=== PATIENT | female | born 1970 | race Caucasian/White ===

== ENCOUNTER → 2023-05-14 16:51 | Outpatient (REF) | payer OTHER, SELFPAY | LOC: WDC 16:51 | PROVIDERS: ATTENDING PHYSICIAN Nurse Practitioner Women's Health; FAMILY PHYSICIAN Family Medicine | DX: Z12.31 Encounter for screening mammogram for malignant neoplasm of breast (principal) | CPT/HCPCS: 77063; 77067 ==

== ENCOUNTER → 2024-01-09 06:56 | Outpatient (REF) | payer OTHER, SELFPAY | LOC: MRI 06:56 | PROVIDERS: ATTENDING PHYSICIAN Physician Assistant Surgical; FAMILY PHYSICIAN Family Medicine | DX: M25.562 Pain in left knee (principal) | CPT/HCPCS: 73721 ==

== ENCOUNTER → 2024-02-15 08:36 | Outpatient (REF) | payer OTHER, SELFPAY | LOC: RAD 08:36 | PROVIDERS: ATTENDING PHYSICIAN Physician Assistant Medical; FAMILY PHYSICIAN Family Medicine | DX: R10.10 Upper abdominal pain, unspecified (principal); R25.2 Cramp and spasm | CPT/HCPCS: 76700 ==

== ENCOUNTER → 2024-04-25 14:55 | Outpatient (REF) | payer OTHER, SELFPAY | LOC: RAD 14:55 | PROVIDERS: ATTENDING PHYSICIAN Physician Assistant Medical; FAMILY PHYSICIAN Physician Assistant Medical | DX: M79.661 Pain in right lower leg (principal); M79.662 Pain in left lower leg; R10.9 Unspecified abdominal pain | CPT/HCPCS: 74177; 93922; 93925; Q9967 ==

== ENCOUNTER → 2024-06-14 18:05 | Outpatient (REF) | payer OTHER, SELFPAY | LOC: WDC 18:05 | PROVIDERS: ATTENDING PHYSICIAN Nurse Practitioner Women's Health; FAMILY PHYSICIAN Physician Assistant Medical | DX: Z12.31 Encounter for screening mammogram for malignant neoplasm of breast (principal) | CPT/HCPCS: 77063; 77067 ==

== ENCOUNTER → 2024-07-15 07:00 | Outpatient (REF) | payer OTHER, SELFPAY | LOC: MRI 07:00 | PROVIDERS: ATTENDING PHYSICIAN Specialist; FAMILY PHYSICIAN Physician Assistant Medical | DX: M25.562 Pain in left knee (principal) | CPT/HCPCS: 73721 ==

== ENCOUNTER → 2024-09-27 09:46 | Outpatient (REF) | payer OTHER, SELFPAY | LOC: PET 09:46 | PROVIDERS: ATTENDING PHYSICIAN Student in an Organized Health Care Education/Training Program | DX: Z01.818 Encounter for other preprocedural examination (principal) | CPT/HCPCS: 78431; A9555; J2785 ==

== ENCOUNTER 2024-11-03 10:54 | Outpatient (RCR) | payer OTHER, SELFPAY | END 2024-11-03 23:59 | disposition home or self-care (01) | LOC: RPT 10:54 | PROVIDERS: ATTENDING PHYSICIAN Physician Assistant Surgical; FAMILY PHYSICIAN Physician Assistant Medical | DX: M17.12 Unilateral primary osteoarthritis, left knee (principal); Z96.652 Presence of left artificial knee joint; Z47.1 Aftercare following joint replacement surgery | CPT/HCPCS: 93971; 97010; 97014; 97110; 97112; 97140; 97161; 97530; 97535 ==

== ENCOUNTER 2024-12-06 11:49 | Outpatient (RCR) | payer OTHER, SELFPAY | END 2024-12-06 23:59 | disposition home or self-care (01) | LOC: RPT 11:49 | PROVIDERS: ATTENDING PHYSICIAN Physician Assistant Surgical; FAMILY PHYSICIAN Physician Assistant Medical | DX: Z47.1 Aftercare following joint replacement surgery; M17.12 Unilateral primary osteoarthritis, left knee; M25.562 Pain in left knee; R26.89 Other abnormalities of gait and mobility; M62.81 Muscle weakness (generalized); Z73.6 Limitation of activities due to disability; Z96.652 Presence of left artificial knee joint | CPT/HCPCS: 97010; 97014; 97110; 97116; 97140; 97530; 97535 ==

== ENCOUNTER 2025-01-03 08:06 | Outpatient (RCR) | payer OTHER, SELFPAY | END 2025-01-03 23:59 | disposition home or self-care (01) | LOC: RPT 08:06 | PROVIDERS: ATTENDING PHYSICIAN Physician Assistant Surgical; FAMILY PHYSICIAN Physician Assistant Medical | DX: M17.12 Unilateral primary osteoarthritis, left knee (principal); Z47.1 Aftercare following joint replacement surgery (principal); M25.562 Pain in left knee; M62.81 Muscle weakness (generalized); R26.89 Other abnormalities of gait and mobility; Z96.652 Presence of left artificial knee joint; Z73.6 Limitation of activities due to disability | CPT/HCPCS: 97110; 97140; 97530 ==

== ENCOUNTER 2025-01-27 09:37 | Outpatient (RCR) | payer OTHER, SELFPAY | END 2025-02-03 23:59 | disposition home or self-care (01) | LOC: RPT 09:37 | PROVIDERS: ATTENDING PHYSICIAN Physician Assistant Surgical; FAMILY PHYSICIAN Physician Assistant Medical | DX: M17.12 Unilateral primary osteoarthritis, left knee (principal); Z96.652 Presence of left artificial knee joint; Z47.1 Aftercare following joint replacement surgery; M25.562 Pain in left knee; R26.89 Other abnormalities of gait and mobility; Z73.6 Limitation of activities due to disability; M62.81 Muscle weakness (generalized) | CPT/HCPCS: 97010; 97110; 97140; 97530 ==

== ENCOUNTER 2025-02-17 10:40 | Outpatient (RCR) | payer OTHER, SELFPAY | END 2025-02-17 23:59 | disposition home or self-care (01) | LOC: RPT 10:40 | PROVIDERS: ATTENDING PHYSICIAN Physician Assistant Surgical; FAMILY PHYSICIAN Physician Assistant Medical | DX: Z47.1 Aftercare following joint replacement surgery (principal); M17.12 Unilateral primary osteoarthritis, left knee; M25.562 Pain in left knee; R26.89 Other abnormalities of gait and mobility; M62.81 Muscle weakness (generalized); Z73.6 Limitation of activities due to disability; Z96.652 Presence of left artificial knee joint | CPT/HCPCS: 97110; 97530 ==

== ENCOUNTER 2025-03-02 22:54 | Emergency (ER) | payer OTHER, SELFPAY ==
[2025-03-02 23:07] VITALS: BP 163/85
[2025-03-02 23:57] LABS: COVID-19 Antigen Negative (Negative)
--- NOTE | 2025-03-03 00:57 | ED.GENMED ---
History of Present Illness
General
Chief Complaint: Facial Problem
Source: patient
Time Seen by Provider: 03/02/25 23:47
Nursing documentation reviewed up to this point in time: agreed with
History of Present Illness
History of Present Illness:
Note:
CHIEF COMPLAINT(S)
Facial pain and gum soreness.
HISTORY OF PRESENT ILLNESS
The patient is a 54-year-old female who presents with facial pain and gum soreness, which began earlier today. She reports feeling congested on one side of her face, and by the evening, her gum on the same side became sore and progressively
worsened. The patient contacted her family physician, who advised that if the discomfort was tolerable, she could wait until the clinic opened, otherwise she should seek emergency care. The patient has a history of a similar issue approximately one
year ago and describes symptoms consistent with a sinus infection. She has a known adverse reaction to Augmentin, characterized by a rash and gastrointestinal upset, and is also intolerant to doxycycline due to similar gastrointestinal effects/rash.
The patient disclosed a history of migraines and took medication for them prior to arriving.
PAST MEDICAL AND SURGICAL HISTORY
The patient has a history of migraines.
SOCIAL HISTORY
The patient denies alcohol, smoking, or substance use.
ALLERGIES
She experiences a rash with Augmentin and has noted gastrointestinal upset with both Augmentin and doxycycline.
REVIEW OF SYSTEMS
- Ear, Nose, and Throat: Congestion and gum soreness on one side of the face.
- Gastrointestinal: Known upset with certain antibiotics.
- Neurological: History of migraines.
PHYSICAL EXAM
General: Alert, mild acute distress.
Skin: Warm, dry.
Head: Normocephalic, atraumatic.
Neck: Supple, trachea midline.
Eye, Ears, nose, mouth and throat: Oral mucosa moist. Tenderness to palpation over the left maxillary sinus, no nystagmus noted.
Cardiovascular: Normal peripheral perfusion, heart is regular rhythm.
Respiratory: Lungs clear to auscultation bilaterally, respirations are non-labored.
Gastrointestinal: Nondistended, no edema.
Back: Normal range of motion, normal alignment.
Musculoskeletal: Normal range of motion, normal strength.
Neurological: Alert and oriented to person, place, time, and situation, no focal neurological deficit observed.
Psychiatric: Cooperative, appropriate mood & affect.
PROBLEM LIST
- Acute: Facial pain and gum soreness.
PLAN
The plan is to initiate treatment with antibiotics other than Augmentin and doxycycline due to known intolerances.
DIFFERENTIAL DIAGNOSIS
The Differential Diagnosis includes, in no particular order and is not limited to:
1. Sinusitis
2. Dental Abscess
3. Gingivitis
4. Temporomandibular Joint Disorder
5. Trigeminal Neuralgia
6. Maxillary Sinusitis
7. Allergic Reaction
8. Facial Cellulitis
9. Viral Upper Respiratory Infection
10. Migraine-associated Oral Pain
Disposition:
SUMMARY OF ENCOUNTER
The patient is a 54-year-old female who presented to the emergency department with left-sided facial pain, consistent with sinusitis. Upon evaluation, she denied fever or chills and reported no difficulty breathing or trouble swallowing. Based on
clinical assessment, it was decided not to pursue laboratory work or a CT scan. Given her allergies to penicillin and doxycycline, levofloxacin was chosen as the antibiotic of choice. The patient was informed about her condition, and plans for
follow-up with her family doctor were established.
DISPOSITION
Discharge.
ASSESSMENT
The patient presents with symptoms consistent with acute sinusitis, which aligns with her history of left-sided facial pain and gum soreness.
PLAN
The patient will be treated with levofloxacin given her known allergies. She will be discharged with instructions to follow up with her family physician for ongoing care and management of her condition.
PATIENT EDUCATION AND COUNSELING
The patient was educated about the nature of acute sinusitis and the rationale for selecting levofloxacin, considering her known allergies. She was instructed on recognizing symptoms that would warrant immediate medical attention and advised to
follow up with her family physician.
FOLLOW-UP INSTRUCTIONS
The patient should follow up with her family doctor for ongoing evaluation and management.
MEDICATION RECONCILIATION
Levofloxacin was prescribed for the treatment of acute sinusitis.
MEDICAL DECISION MAKING
- Number and Complexity of Problems Addressed: Chronic conditions affecting care [history of migraines, known allergies, intolerance to certain antibiotics]. Differential diagnosis includes sinusitis, dental abscess, gingivitis, temporomandibular
joint disorder, maxillary sinusitis, and others.
- Risk: Prescription medication (levofloxacin) was prescribed, considering the patient�s allergy profile.
DIAGNOSIS
- Acute sinusitis (ICD-10: J01.90)
Past History
Past History
ED Past Medical History: Other (Migraines, Planter Fasciitis)
ED Past Surgical History: Other (Endometriosis with L ovarie/fallopian tube removed.)
Social History
Tobacco: Non-smoker
Alcohol: None
Personal:
Living: with family
Employment: Employed
Phy Exam
Physical Exam
Physical Exam:
.
Course
Orders/Labs/Results
Orders:
Orders
03/02/25 23:14
COVID-19 Antigen Urgent
Source: Nasal Swab
Influenza A+B Rapid Molecular Urgent
ADELINE Source: Nasal Swab
Specimen Description:
03/03/25 00:55
LevoFLOXacin [Levaquin] 750 mg PO NOW STA
Vital Signs
Initial and Last Documented VS:
Initial Vital Signs
Temp Pulse Resp BP Pulse Ox
99.4 F 87 18 163/85 100
03/02/25 23:07 03/02/25 23:07 03/02/25 23:07 03/02/25 23:07 03/02/25 23:07
Last Documented Vital Signs
Temp Pulse Resp BP Pulse Ox
99.4 F 87 18 163/85 100
03/02/25 23:07 03/02/25 23:07 03/02/25 23:07 03/02/25 23:07 03/03/25 00:58
*Pulse Oximetry
SaO2: 100
Oxygen Mode of Delivery: Room air
Patient hypoxic: no
*Critical Care Note
Total Time (30-74mins, 75-104mins- exclusive of procedures): Not Applicable
ED Attending Note
-
Portions of this chart may have been created with voice recognition software.� Occasional wrong word or��sound alike� substitutions may have occurred due to the inherent limitations of voice recognition software.
Discharge Plan
Departure
Patient Disposition: Home (Routine Discharge)
Date of Disposition: 03/03/25
Time of Disposition: 00:57
Patient with high blood pressure during this ER visit?: Yes
Condition: Good
Discharge Problem:
Acute sinusitis
Instructions: Sinusitis, Adult (DC), BLOOD PRESSURE
Prescriptions:
New
levofloxacin 750 mg tablet
750 mg PO DAILY 7 Days Qty: 7 0RF
No Action
sumatriptan succinate [Imitrex] 100 MG tablet
100 mg PO PRN PRN (Reason: migraines)
albuterol sulfate [Proventil HFA] 90 MCG/PUFF HFA aerosol inhaler
2 puff inhalation Q4HPRN PRN (Reason: shortness of breath) Qty: 1 0RF
dexamethasone 6 MG tablet
6 mg PO DAILY Qty: 6 0RF
prednisone 10 MG tablet
10 mg PO .TAPER Qty: 30 0RF
Rx Instructions:
Take 40mg daily x3days, 30mg daily x3days,
20mg daily x3days, 10mg daily x3days.
tramadol [Ultram] 50 MG tablet
50 mg PO Q6HPRN PRN (Reason: severe pain) Qty: 15 0RF
Referrals:
Ketty Cuellar PA-C [Family Provider, Family Practice]
Activity Restrictions/Additional Instructions:
Your prescriptions were sent electronically to the pharmacy that you specified.
Thank You for choosing [facility].
It was a pleasure meeting you and taking part in your care. We hope for your continued healing and wellness.
Please read discharge instructions in their entirety. However, they are for general education and may not describe your exact diagnosis at discharge. Information on your ER visit and medical conditions were discussed with you along with appropriate
follow up information...
If indicated, please take your medications as instructed and indicated on discharge paperwork.
Please schedule a follow up appointment as directed. Call to schedule an appointment
Please return to the emergency department with ANY change in, persisting, or worsening of symptoms. If any of your symptoms do not improve, or persist, or become more severe within 6-12 hours, please return to the emergency department for further
care.
Please return to the emergency department if you develop a headache, neck pain/stiffness, fever greater than 100.4F, chest pain, shortness of breath, persistent nausea, vomiting, slurred speech, difficulty walking, numbness/tingling, weakness, signs
of infection or any other symptoms that are worrisome to you.
If you have any questions or concerns please do not hesitate to call the Hospital at .
Interventions
Interventions:
*Risk Screen - Suicide (C-SSRS) Last Done: 03/02/25 23:07
Discharge Date and Time
Print Language: [place]
[2025-03-03] MEDS: LEVAQUIN 750 MG PO (01:17)
== END 2025-03-03 01:30 | disposition home or self-care (01) ==
LOC: EMR 22:54
PROVIDERS: EMERGENCY PHYSICIAN Student in an Organized Health Care Education/Training Program; FAMILY PHYSICIAN Physician Assistant Medical
DX: J01.90 Acute sinusitis, unspecified (principal); R03.0 Elevated blood-pressure reading, without diagnosis of hypertension; G43.909 Migraine, unspecified, not intractable, without status migrainosus; Z88.0 Allergy status to penicillin; Z88.1 Allergy status to other antibiotic agents
CPT/HCPCS: 99283; 87502; 87811